=== PATIENT | male | born 1990 | race African-American/Black ===

== ENCOUNTER 2017-10-01 23:05 | Emergency (ER) | payer BC, OTHER ==
[~2017-10-01] VITALS: Ht 193 cm; Wt 95.3 kg
[2017-10-02] MEDS ORDERED: FLEXERIL PO (00:21)
[2017-10-02 01:01] VITALS: BP 146/98
== END 2017-10-02 01:02 | disposition home or self-care (01) ==
LOC: ER 23:05
DX: S80.812A Abrasion, left lower leg, initial encounter (principal); S80.811A Abrasion, right lower leg, initial encounter; V89.2XXA Person injured in unspecified motor-vehicle accident, traffic, initial encounter; Y93.89 Activity, other specified; Y92.89 Other specified places as the place of occurrence of the external cause; Y99.8 Other external cause status